=== PATIENT | female | born 1990 | race Caucasian/White ===

== ENCOUNTER 2017-03-22 09:15 | Emergency (ER) | payer SELFPAY | END 2017-03-22 10:36 | disposition home or self-care (01) | LOC: D.ER 09:15 | DX: H92.02 Otalgia, left ear (principal); G40.909 Epilepsy, unspecified, not intractable, without status epilepticus ==

== ENCOUNTER 2017-04-11 17:04 | Emergency (ER) | payer SELFPAY | END 2017-04-11 21:55 | disposition home or self-care (01) | LOC: D.ER 17:04 | DX: R51 Headache (principal); K04.7 Periapical abscess without sinus ==

== ENCOUNTER 2017-06-09 19:31 | Emergency (ER) | payer SELFPAY | END 2017-06-09 21:25 | disposition home or self-care (01) | LOC: D.ER 19:31 | DX: G43.909 Migraine, unspecified, not intractable, without status migrainosus (principal); F17.200 Nicotine dependence, unspecified, uncomplicated ==

== ENCOUNTER 2018-03-01 22:02 | Emergency (ER) | payer SELFPAY ==
[~2018-03-01] VITALS: Ht 167.6 cm; Wt 68.2 kg
[~2018-03-01 22:02] MED LIST: TORADOL10 MG PO; ZOFRAN8 MG PO
[2018-03-01 22:08] VITALS: Ht 167.6 cm; Wt 68.2 kg
[2018-03-01] MEDS ORDERED: TOPAMAX50 MG (22:09)
[2018-03-02 00:26] VITALS: BP 128/68
== END 2018-03-02 00:25 | disposition home or self-care (01) ==
LOC: D.ER 22:02
DX: G43.909 Migraine, unspecified, not intractable, without status migrainosus (principal); S29.012A Strain of muscle and tendon of back wall of thorax, initial encounter; X58.XXXA Exposure to other specified factors, initial encounter; Y93.89 Activity, other specified; Y92.019 Unspecified place in single-family (private) house as the place of occurrence of the external cause; F17.200 Nicotine dependence, unspecified, uncomplicated; G40.909 Epilepsy, unspecified, not intractable, without status epilepticus

== ENCOUNTER 2019-10-02 09:12 | Emergency (ER) | payer SELFPAY ==
[~2019-10-02] VITALS: Ht 167.6 cm; Wt 79.5 kg
[~2019-10-02 09:12] MED LIST changes: +TOPAMAX50 MG
[2019-10-02 09:15] VITALS: Ht 167.6 cm; Wt 79.5 kg
[2019-10-02] MEDS ORDERED: NAPROSYN500 MG PO (10:03)
[2019-10-02] MEDS ORDERED: AUGMENTIN 875-11 TAB PO (10:03)
[2019-10-02 10:12] VITALS: BP 132/80
== END 2019-10-02 10:12 | disposition home or self-care (01) ==
LOC: D.ER 09:12
DX: K04.7 Periapical abscess without sinus (principal); K08.89 Other specified disorders of teeth and supporting structures

== ENCOUNTER 2019-11-29 10:06 | Emergency (ER) | payer SELFPAY ==
[~2019-11-29] VITALS: Ht 167.6 cm; Wt 79.5 kg
[~2019-11-29 10:06] MED LIST changes: +AUGMENTIN 875-11 TAB PO; +NAPROSYN500 MG PO
[2019-11-29 10:29] VITALS: Ht 167.6 cm; Wt 79.5 kg
[2019-11-29] MEDS ORDERED: MUCINEX DM ER1 EAC1 PO (12:30)
[2019-11-29] MEDS ORDERED: STERAPRED 5MG 65 M1 PO (12:30)
[2019-11-29] MEDS ORDERED: ALBUTEROL SULF8.5 GM INH (12:30)
[2019-11-29] MEDS ORDERED: ZYRTEC10 MG PO (12:30)
[2019-11-29 13:17] VITALS: BP 121/73
== END 2019-11-29 13:18 | disposition home or self-care (01) ==
LOC: D.ER 10:06
DX: J06.9 Acute upper respiratory infection, unspecified (principal); R05 Cough; Z20.828 Contact with and (suspected) exposure to other viral communicable diseases; R06.02 Shortness of breath; R09.81 Nasal congestion

== ENCOUNTER 2020-01-07 19:32 | Emergency (ER) | payer MEDICAID ==
[~2020-01-07] VITALS: Ht 167.6 cm; Wt 81.6 kg
[~2020-01-07 19:32] MED LIST changes: +ALBUTEROL SULF8.5 GM INH; +MUCINEX DM ER1 EAC1 PO; +STERAPRED 5MG 65 M1 PO; +ZYRTEC10 MG PO
[2020-01-07 20:36] VITALS: Ht 167.6 cm; Wt 81.6 kg
[2020-01-07 20:44] LABS: BILIRUBIN NEGATIVE (NEGATIVE); GLUCOSE NEGATIVE (NEGATIVE); KETONE MODERATE mg/dL (NEGATIVE); NITRITE NEGATIVE (NEGATIVE); UROBILINOGEN NORMAL (NORMAL)
[2020-01-07 20:45] LABS: BACTERIA FEW /hpf (NEGATIVE); EPITHELIAL CELLS OCC /hpf (0-5); RED CELLS - URINE OCC /hpf (0-5); WHITE CELLS - URINE 0-5 /hpf (NEGATIVE)
[2020-01-07 21:31] LABS: BASOPHILS 0.1 % (0-2); EOSINOPHILS 2.8 % (0-7); HEMATOCRIT 40.8 % (36.0-48.0); HEMOGLOBIN 13.3 g/dL (12-16); IMMATURE GRANULOCYTES 0.4 % (0-5); LYMPHOCYTES 24.3 % (15-50); MCHC 32.6 g/dL (31.0-37.0); MCV 88.9 fL (80.0-100.0); MONOCYTES 7.1 % (2-11); NEUTROPHILS 65.3 % (40-80); PLATELET COUNT 305 10x3/uL (130-400); RBC 4.59 10x6/uL (4.00-5.40); WBC 9.7 10x3/uL (4.8-10.8)
[2020-01-07 21:38] LABS: CALC OSMOLALITY 268 mosm/kg (275-300); CALCIUM 9.6 mg/dL (8.5-10.1); CHLORIDE - SERUM 100 mmol/L (98-107); CREATININE - SERUM 0.7 mg/dL (0.6-1.3); GLUCOSE 93 mg/dL (74-106); POTASSIUM - SERUM 3.7 mmol/L (3.5-5.1); SODIUM 135 mmol/L (136-145); UREA NITROGEN 9 mg/dL (7-18); eGFR NON AFRICAN AMERICAN > 90 mL/min (90-120)
[2020-01-07 21:47] LABS: HCG SERUM POSITIVE (NEGATIVE)
[2020-01-07 22:04] LABS: ALBUMIN 4.3 g/dL (3.4-5.0); ALKALINE PHOSPHATASE 61 U/L (30-120); ALT (SGPT) 30 U/L (10-68); BILIRUBIN - TOTAL 0.25 mg/dL (0.2-1.3); HCG - QUANTITATIVE (MATERNAL) 104318 mIU/mL; PROTEIN - SERUM 8.6 g/dL (6.4-8.2)
[2020-01-07] MEDS ORDERED: ZOFRAN ODT4 MG/UDTAB PO (23:00)
[2020-01-07 23:18] VITALS: BP 127/72
== END 2020-01-07 23:18 | disposition home or self-care (01) ==
LOC: D.ER 19:32
PROVIDERS: Family Medicine
DX: O20.9 Hemorrhage in early pregnancy, unspecified (principal); Z3A.08 8 weeks gestation of pregnancy; R10.30 Lower abdominal pain, unspecified

== ENCOUNTER 2020-01-20 11:20 | Emergency (ER) | payer MEDICAID ==
[~2020-01-20] VITALS: Ht 167.6 cm; Wt 81.8 kg
[~2020-01-20 11:20] MED LIST changes: +ZOFRAN ODT4 MG/UDTAB PO
[2020-01-20 11:31] VITALS: Ht 167.6 cm; Wt 81.8 kg
[2020-01-20 12:20] LABS: HEMATOCRIT 37.4 % (36.0-48.0); HEMOGLOBIN 12.2 g/dL (12-16); LYMPHOCYTES 24.2 % (15-50); MCH 28.5 pg (26.0-34.0); MCHC 32.6 g/dL (31.0-37.0); MCV 87.4 fL (80.0-100.0); MEAN PLATELET VOLUME 9.7 fL (7.4-10.4); NEUTROPHILS 67.8 % (40-80); PLATELET COUNT 283 10x3/uL (130-400); RBC 4.28 10x6/uL (4.00-5.40); RDW 12.4 % (11.5-14.5); WBC 6.5 10x3/uL (4.8-10.8)
[2020-01-20 12:22] LABS: BACTERIA FEW /hpf (NONE SEEN); BILIRUBIN NEGATIVE (NEGATIVE); EPITHELIAL CELLS 0-5 /hpf (0-5); KETONE NEGATIVE (NEGATIVE); NITRITE NEGATIVE (NEGATIVE); RED CELLS - URINE 0-5 /hpf (0-5); UROBILINOGEN NORMAL (NORMAL); WHITE CELLS - URINE 0-5 /hpf (0-5)
[2020-01-20 12:23] LABS: AMORPHOUS SEDIMENT <1+ /lpf (NONE SEEN)
[2020-01-20 12:34] LABS: CREATINE KINASE 85 UL (21-215); HCG - QUANTITATIVE (MATERNAL) 58295 mIU/mL
[2020-01-20 13:37] LABS: CALC OSMOLALITY 269 mosm/kg (275-300); CARBON DIOXIDE 23.9 mmol/L (21.0-32.0); CHLORIDE - SERUM 103 mmol/L (98-107); CREATININE - SERUM 0.8 mg/dL (0.6-1.3); GLUCOSE 88 mg/dL (74-106); POTASSIUM - SERUM 3.9 mmol/L (3.5-5.1); SODIUM 136 mmol/L (136-145); UREA NITROGEN 9 mg/dL (7-18); eGFR NON AFRICAN AMERICAN 90 mL/min (90-120)
[2020-01-20 13:44] LABS: ALBUMIN 4.1 g/dL (3.4-5.0); ALKALINE PHOSPHATASE 55 U/L (30-120); ALT (SGPT) 26 U/L (10-68); BILIRUBIN - TOTAL 0.24 mg/dL (0.2-1.3); PROTEIN - SERUM 7.7 g/dL (6.4-8.2)
== END 2020-01-20 13:05 | disposition left against medical advice (07) ==
LOC: D.ER 11:20
PROVIDERS: Family Medicine
DX: O26.851 Spotting complicating pregnancy, first trimester (principal); Z3A.11 11 weeks gestation of pregnancy

== ENCOUNTER 2020-07-26 14:21 | Outpatient (CLI) | payer MEDICAID ==
[2020-01-20 11:31] VITALS: BMI 29.1
[~2020-07-26 14:21] MED LIST changes: +ACETAMINOPHEN325 MG PO; +BENADRYL25 MG PO; +PRENAVITE1 TAB PO
== END 2020-07-26 18:04 ==
LOC: D.LDO 14:21
PROVIDERS: ATTEND Student in an Organized Health Care Education/Training Program
DX: O36.8130 Decreased fetal movements, third trimester, not applicable or unspecified (principal); Z3A.38 38 weeks gestation of pregnancy

== ENCOUNTER 2020-08-04 11:05 | Inpatient (IN) | payer MEDICAID ==
[2020-01-20 11:31] VITALS: Ht 170.2 cm; Wt 92.5 kg
[~2020-08-04] VITALS: Ht 170.2 cm; Wt 92.5 kg
[2020-08-04] MEDS ORDERED: TUMS X-STR300 MG PO (11:23)
[2020-08-04] MEDS ORDERED: PHENERGAN25 M1 PO (11:24)
[2020-08-04 12:40] VITALS: BP 135/88; BMI 33.0
[2020-08-04 13:48] LABS: HEMATOCRIT 27.9 % (36.0-48.0); HEMOGLOBIN 8.9 g/dL (12-16); MCH 25.9 pg (26.0-34.0); MCHC 31.9 g/dL (31.0-37.0); MCV 81.3 fL (80.0-100.0); RBC 3.43 10x6/uL (4.00-5.40); RDW 12.9 % (11.5-14.5); WBC 9.9 10x3/uL (4.8-10.8)
[2020-08-04 15:16] LABS: UDS - AMPHET NEGATIVE QUAL (NEGATIVE); UDS - BARB NEGATIVE QUAL (NEGATIVE); UDS - BENZO NEGATIVE QUAL (NEGATIVE); UDS - COCAINE NEGATIVE QUAL (NEGATIVE); UDS - OPIATE NEGATIVE QUAL (NEGATIVE); UDS - PCP NEGATIVE QUAL (NEGATIVE); UDS - THC POSITIVE QUAL (NEGATIVE)
[2020-08-04 15:23] LABS: BILIRUBIN NEGATIVE (NEGATIVE); KETONE NEGATIVE (NEGATIVE); NITRITE NEGATIVE (NEGATIVE); UROBILINOGEN NORMAL mg/dL (< 2)
[2020-08-04 15:34] LABS: WHITE CELLS - URINE 0-5 HPF (0-4)
[2020-08-04 15:35] LABS: BACTERIA FEW HPF (NONE SEEN)
[2020-08-05 06:11] LABS: RAPID PLASMA REAGIN Non Reactive (Non Reactive)
--- NOTE | 2020-08-05 21:05 | NUR ---
PROBE GIVEN TO DR ARIAS
[2020-08-05 21:54] VITALS: BP 146/73
[2020-08-05 22:37] VITALS: BP 153/82
--- NOTE | 2020-08-06 | NUR ---
PT.'S RECOVERY COMPLETED. INITIATED CHARTING AT THIS TIME. DISCUSSED CONTINUED PLAN OF CARE WITH PT. AND SIGNIFICANT OTHER. INSTRUCTED PT. REGARDING MEDICATIONS ORDERED FOR PAIN RELIEF AND HOW OFTEN SHE MAY HAVE THEM. PT. VERBALIZES UNDERSTANDING. VITALS AND ASSESSMENT COMPLETED. SEE FLOWSHEET. RESP. ARE EVEN AND UNLABORED. BREATH SOUNDS CLEAR. BOWEL SOUNDS HYPOACTIVE X 4. PT. DENIES PASSING GAS AT THIS TIME. BIKINI LINE INCISION COVERED WITH ABDOMINAL DRESSING THAT IS C/D/I. PT. INSTRUCTED REGARDING DRAWING LAB IN AM AND THEN SHE WILL PROBABLY BE CHANGED TO ORAL MEDICATIONS AND GET TO GET OUT OF BED. PT. VERBALIZES UNDERSTANDING. DENIES ANY FURTHER QUESTIONS OR CONCERNS AT THIS TIME.
--- NOTE | 2020-08-06 02:37 | NUR ---
DILAUDID 2 MG ADMINISTERED SIVP PER MD ORDERS AND PT. COMPLAINT OF PAIN THAT PT. RATES AT "7" ON 0-10 SCALE. PT. AND SIGNFICANT OTHER REPORT TRYING TO GET A NAP BEFORE COMES OUT TO FEED AGAIN. PT. DENIES ANY NEEDS AT THIS TIME.
[2020-08-06 02:38] VITALS: BP 129/78
--- NOTE | 2020-08-06 03:35 | NUR ---
PT. AWAKE AND ALERT UPON ENTERING ROOM. PT. REPORTS "I WAS HAVING A WEIRD DREAM". PT. REPORTS PAIN AT "5" ON 0-10 SCALE. TORADOL 30 MG ADMINISTERED IVP PER MD ORDERS.
--- NOTE | 2020-08-06 04:25 | NUR ---
Enid ROSARIO RN NURSERY NURSE TO ROOM WITH FOR FEEDING. ASSISTED MOM IN GETTING INFANT LATCHED TO RIGHT BREAST. ZOSYN 3.375 GM HUNG IVPB PER MD ORDERS.
--- NOTE | 2020-08-06 05:20 | NUR ---
LAB HERE FOR AM DRAW
[2020-08-06 05:57] LABS: HEMOGLOBIN 8.6 g/dL (12-16); MCH 25.7 pg (26.0-34.0); MCHC 31.9 g/dL (31.0-37.0); MCV 80.6 fL (80.0-100.0); MEAN PLATELET VOLUME 10.1 fL (7.4-10.4); RBC 3.35 10x6/uL (4.00-5.40)
[2020-08-06 06:01] LABS: WBC 15.3 10x3/uL (4.8-10.8)
--- NOTE | 2020-08-06 06:30 | NUR ---
PT. SEED SERVICE ADVISOR LIGHT AND REQUEST PAIN MEDICATION AT THIS TIME.
--- NOTE | 2020-08-06 06:33 | NUR ---
PT. MEDICATED PER MD ORDERS WITH DILAUDID 2 MG IVP FOR PAIN THAT SHE RATES AT "8" ON 0-10 SCALE. 150 MLS DARK YELLOW URINE EMPTIED FROM LARSON CHAMBER TO BAG. EMPTIED LARSON BAG AT THIS TIME. CHUX AND TOWELS CHANGED. MARIAN CARE PERFORMED WITH WARM WET WASHCLOTHES. NEW MARIAN PAD PLACED. PT. REQUEST ORANGE JUICE TO DRINK AT THIS TIME.
--- NOTE | 2020-08-06 06:43 | NUR ---
PT. IS PROVIDED WITH LARGE CUP OF ORANGE JUICE. DENIES FURTHER NEEDS AT THIS TIME.
--- NOTE | 2020-08-06 07:22 | NUR ---
PT. SLEEPING AT THIS TIME
--- NOTE | 2020-08-06 08:10 | NUR ---
PATIENT SALINED LOCKED AT THIS TIME. LARSON REMOVED. PATIENT TOLERATED PROCEDURE WELL. PATIENT INSTRUCTED THAT SHE WILL AMBULATE TO RESTROOM IN 30 MINUTES. PATIENT VERBALIZES AGREEMENT AND UNDERSTANDING TO PLAN.
--- NOTE | 2020-08-06 09:06 | NUR ---
PATIENT AMBULATED TO RESTROOM WITHOUT DIFFICULTY. SCD REMOVED. SKIN WNL. PERICARE PERFOMRED. NEW GOWN, PANTIES, PAD GIVEN TO PATIENT. PATIENT ASSISTED BACK TO BED WITHOUT DIFFICULTY. PATIENT TOLERATED WELL.
--- NOTE | 2020-08-06 10:40 | NUR ---
DR. ARIAS AT BEDSIDE FOR MORNING ASSESSMENT. PLAN OF CARE DISCUSSEED AT BEDSIDE. PATIENT GIVEN OPPORTUNITY TO ASK ANY QUESTIONS. RN PRESENT AT BEDSIDE.
--- NOTE | 2020-08-06 12:02 | NUR ---
PATIENT GIVEN ABDOMINAL BINDER. PATIENT EDUCATED ON THE CORRECT USE OF THE BINDER AND HOW TO PROPERLY WEAR IT. PATIENT AT THE MOMENT. RN INFORMED PATIENT THAT WHEN SHE IS READY TO PUT BINDER ON FOR THE FIRST TIME TO CALL AND SHE WILL ASSIST. PATIENT AND SIGNIFICANT OTHER VERBALIZED UNDERSTANDING OF INFORMATION GIVEN.
[2020-08-06 20:42] VITALS: BP 121/73
--- NOTE | 2020-08-06 20:56 | NUR ---
AMBULATORY IN HALLS WITH SO. NAD NOTED.
--- NOTE | 2020-08-06 21:37 | NUR ---
SCHEDULED MEDS GIVEN PER ORDERS AND PER FACILITY POLICY. PT REPORTS DESIRE TO TAKE SHOWER-STATES "I STILL HAVE VOMIT IN MY HAIR." ALSO REPORTS PASSING FLATUS SINCE AMBULATING IN HALLS. WILL PLAN FOR SHOWER AFTER ANTIBIOTICS INFUSED PER PT REQUEST.
--- NOTE | 2020-08-06 22:30 | NUR ---
ROUNDS COMPLETED, AMBULATORY IN ROOM, NAD NOTED. WILL MONITOR.
--- NOTE | 2020-08-07 00:25 | NUR ---
ROUNDS COMPLETED, RESP EVEN AND UNLABORED, EYES CLOSED, C/L IN EASY REACH, SO ASLEEP ON COUCH ADJACENT TO PT BED, NAD NOTED, WILL MONITOR.
--- NOTE | 2020-08-07 02:30 | NUR ---
ROUNDS COMPLETED, PT RESTING WITH EYES CLOSED, RESP EVEN AND UNLABORED, NAD NOTED.
--- NOTE | 2020-08-07 03:14 | NUR ---
PT USING C/L TO REQUEST PRN PAIN MED FOR C/O PAIN 8 OUT OF 10 ON NUMERIC PAIN SCALE, SAME PROVIDED ALONG WITH SCHEDULED MEDS. CUP OF ICE WATER PROVIDED WELL, PT SITTING ON SIDE OF BED, B FEET ON FLOOR. VSS, AFEBRILE.
[2020-08-07 03:18] VITALS: BP 115/76
--- NOTE | 2020-08-07 03:45 | NUR ---
ROUNDS COMPLETED, IV ABX COMPLETED, REPORTS PAIN DECREASED NOW 4/10 AND IMPROVING. DENIES OTHER NEEDS, POSITIONED TO COMFORT, RECUMBENT, SR UP X2, HOB AT 20 DEGREES, BED IN LOW POSITION, NAD NOTED. C/L IN EASY REACH.
--- NOTE | 2020-08-07 05:10 | NUR ---
ROUNDS COMPLETED, DENIES NEEDS/CONCERNS/C/O PAIN, WILL MONITOR.
--- NOTE | 2020-08-07 05:54 | NUR ---
AMBULATORY IN HALLS. NAD NOTED.
[2020-08-07 07:23] VITALS: BP 117/73
--- NOTE | 2020-08-07 07:23 | NUR ---
RECEIVED PT SITTING UP IN BED. INFANT. VSS. AAO X 3. HRRR WITHOUT AUDIBLE MURMUR. BBS CLEAR. BS X 4. ABDOMEN SOFT/SLIGHTLY DISTENDED. PT STATES PASSING GAS. FUNDUS FIRM AT U/1. RUBRA LOCHIA SMALL AMT. PT DENIES HEAVY BLEEDING OR PASSING CLOTS. ABDOMINAL INCISION WITH TEA INTACT. NO REDNESS, SWELLING OR DRAINAGE NOTED TO INCISION. ABDOMINAL BINDER IN PLACE. NEG HOMANS' SIGN. PPP. MILD, NON-PITTING EDEMA NOTED TO BLE. PT C/O INCISIONAL PAIN OF "6" ON 0-10 PAIN SCALE. SR UP X 2. CALL LIGHT IN REACH.
--- NOTE | 2020-08-07 07:31 | NUR ---
PERCOCET 10/325 GIVEN PO ORDERED. PT INSTRUCTED ON MED. VERBALIZES UNDERSTANDING. FRESH ICE WATER PROVIDED TO PT.
--- NOTE | 2020-08-07 07:40 | NUR ---
DR ARIAS VISITS WITH PT.
--- NOTE | 2020-08-07 09:21 | NUR ---
SL FLUSHES EASILY WITH 10 ML NS. ZOSYN UP VIA ALARIS PUMP. PT INSTRUCTED ON MED. VERBALIZES UNDERSTANDING. TORADOL 30 MG GIVEN SIVP AND REGLAN 10 MG GIVEN SIVP. PT INSTRUCTED ON ALL MEDS.
--- NOTE | 2020-08-07 10:15 | NUR ---
SCAR COMPLETED. PIV CONVERTED BACK TO SL. SITE CLEAR. PT GINNA WELL.
--- NOTE | 2020-08-07 10:47 | NUR ---
PT AMBULATORY IN HALLS.
--- NOTE | 2020-08-07 12:00 | NUR ---
PT SITTING UP IN BED. CARING FOR INFANT. DENIES C/O OR NEEDS.
--- NOTE | 2020-08-07 12:50 | NUR ---
PT C/O ABDOMINAL CRAMPING. PERCOCET 10/325 GIVEN PO ORDERED. PT INSTRUCTED ON MED. VERBALIZES UNDERSTANDING.
--- NOTE | 2020-08-07 13:50 | NUR ---
PT SITTING UP IN BED. CARING FOR INFANT. DENIES C/O. STATES PAIN MEDICATION RELIEVING PAIN.
--- NOTE | 2020-08-07 15:41 | NUR ---
ZOSYN UP VIA ALARIS PUMP. SL FLUSHES EASILY WITH NS PRIOR TO STARTING. TORADOL 30 MG GIVEN IVP AND REGLAN 10 MG GIVEN SIVP. PT INSTRUCTED ON ALL MEDS. VERBALIZES UNDERSTANDING.
[2020-08-07] MEDS ORDERED: IBUPROFEN800 MG PO (16:21)
[2020-08-07] MEDS ORDERED: PERCOCET 7.5/321 TAB PO (16:22)
--- NOTE | 2020-08-07 16:30 | NUR ---
TDAP 0.5 ML GIVEN IM TO LEFT DELTOID. MMR GIVEN SQ TO RIGHT OUTER ARM. PT INSTRUCTED ON MEDS. VERBALIZES UNDERSTANDING.
--- NOTE | 2020-08-07 16:45 | NUR ---
PT GIVEN DISCHARGE INSTRUCTIONS. VERBALIZES UNDERSTANDING OF ALL INSTRUCTIONS. COPIES GIVEN TO PT. PIV DC'D WITH CATHELON INTACT. PRESSURE BANDAGE TO SITE. PT GINNA WELL.
--- NOTE | 2020-08-07 17:00 | NUR ---
PT READY FOR DISCHARGE. DISCHARGED WITH SECURED IN CARSEAT VIA WHEELCHAIR PER HOSPITAL LUBRICATION SUPERVISOR TO PRIVATE VEHICLE.
== END 2020-08-07 16:00 | disposition home or self-care (01) | DRG 786 ==
LOC: D.LD 11:05
PROVIDERS: Obstetrics & Gynecology; ADMIT Student in an Organized Health Care Education/Training Program; ATTEND Student in an Organized Health Care Education/Training Program
PROC: 10907ZC Drainage of Amniotic Fluid, Therapeutic from Products of Conception, Via Natural or Artificial Opening (ICD-10-PCS; 2020-08-05)
PROC: 3E033VJ Introduction of Other Hormone into Peripheral Vein, Percutaneous Approach (ICD-10-PCS; 2020-08-05)
PROC: 10D00Z1 Extraction of Products of Conception, Low, Open Approach (ICD-10-PCS; principal; 2020-08-05 20:25)
DX: O13.4 Gestational [pregnancy-induced] hypertension without significant proteinuria, complicating childbirth (principal); O41.1230 Chorioamnionitis, third trimester, not applicable or unspecified; Z3A.39 39 weeks gestation of pregnancy; Z37.0 Single live birth